=== PATIENT | female | born 1965 | race Caucasian/White ===

== ENCOUNTER 2017-06-03 21:53 | Emergency (ER) | payer OTHER ==
[2017-06-03 22:04] VITALS: BMI 21.6
--- NOTE | 2017-06-03 22:42 | PDOC ---
History of Present Illness - General Chief Complaint: Wound Infection Stated Complaint: PAIN, ACUTE Time Seen by Provider: 06/03/17 22:39 - History of Present Illness Initial Comments: 06/03/17 23:16 52F with pmh of HTN presents with fever and back pain from infection of a wound from 3 weeks ago supposedly from an insect bite. 3 days after noticing the bite which had turned into an abcess, the patient went to her pcp Dr. Story who drained it and cultured the pus. After a short course of empiric Clavulin the patient went for a second visit and was given Bactrim to cover for MRSA, identified in the culture, and mupirocin oitment. The patient claims that although the wound is looking better and closing, she still feels sick and complains of back pain. She present today with 99.2 fever (not taking NSAIDS), 100 pulse, 134/74. 06/03/17 23:31 Past History - Past Medical History Allergies/Adverse Reactions: Allergies Allergy/AdvReac Type Severity Reaction Status Date / Time No Known Drug Allergies Allergy Verified 06/03/17 22:04 SEAFOOD Allergy Intermediate VOMITTING Uncoded 06/03/17 22:04 Home Medications: Ambulatory Orders Mupirocin Ointment [Bactroban Ointment (For Decolonization) -] 1 applic TP BID 06/03/17 Sulfamethoxazole/Trimethoprim [Bactrim Ds -] 1 tab PO BID 06/03/17 Clindamycin [Cleocin -] 300 mg PO TID #30 capsule 06/04/17 Anemia: No Asthma: No Cancer: No Cardiac Disorders: No CVA: No COPD: No CHF: No Dementia: No Diabetes: No GI Disorders: Yes (Ulcers, HEALED) Disorders: No HTN: Yes Hypercholesterolemia: No Liver Disease: Yes (Hepatitis) Seizures: No Thyroid Disease: No Other medical history: MRSA to wound by PMD - Surgical History Abdominal Surgery: Yes (TUMMY TUCK) Appendectomy: No Cardiac Surgery: No Cholecystectomy: No Lung Surgery: No Neurologic Surgery: No Orthopedic Surgery: No - Psycho/Social/Smoking Cessation Hx Anxiety: No Suicidal Ideation: No Smoking Status: No Smoking History: Never smoked Number of Cigarettes Smoked Daily: 0 Hx Alcohol Use: Yes (RARELY) Drug/Substance Use Hx: No Substance Use Type: None Hx Substance Use Treatment: No Review of Systems - Review of Systems Constitutional: Yes: Fever. No: Chills, Diaphoresis HEENTM: No: Symptoms Reported Respiratory: No: Symptoms reported Cardiac (ROS): No: Symptoms Reported ABD/GI: No: Symptoms Reported : No: Symptoms Reported Musculoskeletal: Yes: See HPI Integumentary: Yes: See HPI Neurological: No: Symptoms reported *Physical Exam - Vital Signs Last Vital Signs Temp Pulse Resp BP Pulse Ox 99.2 F 100 H 18 134/84 98 06/03/17 22:03 06/03/17 22:03 06/03/17 22:03 06/03/17 22:03 06/03/17 22:03 - Physical Exam General Appearance: Yes: Nourished, Appropriately Dressed. No: Apparent Distress HEENT: positive: EOMI, LINDA Neck: negative: Tender Respiratory/Chest: positive: Lungs Clear, Normal Breath Sounds. negative: Chest Tender Cardiovascular: positive: Regular Rhythm, Tachycardia Gastrointestinal/Abdominal: positive: Normal Bowel Sounds. negative: Rebound, Tenderness Integumentary: positive: Other (open wound over Left lower back, no purulence, fluctuation or necrotic tissue, no induration or erythema around the wound) ED Treatment Course - LABORATORY CBC & Chemistry Diagram: 06/03/17 23:30 06/03/17 23:30 Medical Decision Making - Medical Decision Making 06/03/17 23:35 52F presenting for wound check, fever and back pain following abcess I&D by PCP and 10 day course of Bactrim. cbc cmp and cultures drawn 06/04/17 00:29 WBC wnl. PAtient d/c on clindamycin. *DC/Admit/Observation/Transfer Diagnosis at time of Disposition: Admission for wound check of abscess - Discharge Dispostion Disposition: HOME Admit: No - Prescriptions Prescriptions: Clindamycin [Cleocin -] 300 mg PO TID #30 capsule - Referrals Referrals: Nimco Story [Primary Care Provider] -
--- NOTE | 2017-06-03 23:22 | PDOC ---
Attending Attestation - HPI HPI: 06/03/17 23:36 The patient is a 52 year old female with a significant past medical history of hepatitis and aneurysm, presenting to the ED with wound infection on the left hip. Patient states that she came back from [place] 3 weeks ago and noticed an insect fight that progressed into an abscess. Patient was seen at her PCPs office where the abscess was drained and patient was discharged on Bactrim after the wound culture tested positive for MRSA. Patient states that the wound looks better, but she still feels sick and has a fever even after completing a full course of Bactrim. - Physicial Exam PE: 06/03/17 23:37 GENERAL: Well-appearing, well-nourished. No apparent distress. HEENT: Normocephalic, atraumatic. PERRL, EOM intact. CARDIOVASCULAR: Normal S1, S2. Regular rate and rhythm. PULMONARY: Clear to auscultation bilaterally. ABDOMEN: Soft, non-distended, non-tender. EXTREMITIES: Normal ROM in all four extremities. No gross deformities. SKIN: (+)Open wound left hip, Wound is clear, No excoriation of the surrounding tissue , No erythema, No induration, Mild to no tenderness. Warm, dry. No rash NEUROLOGICAL: No focal neurological deficits. - Medical Decision Making 06/03/17 23:37 52 year old female with pmhx of hepatitis who presents today with wound to the left hip. Patient states that she had abscess I&D by PMD and the wound culture tested positive for MRSA and she was given course of Bactrim. She states that after completion of abx she is still experiencing malaise and fever. She notes that the wound does look better to her. Plan: CBC Toradol UA Clindamycin 600 Mg Blood culture Reassess Documentation prepared by GLORIA Rodriguez, acting as hospital medical biller for Alvino Jolly DO. <Salima Marvin - Last Filed: 06/03/17 23:36> - Resident Resident Name: Arnav Natarajan - ED Attending Attestation I have performed the following: I have examined & evaluated the patient, The case was reviewed & discussed with the resident, I agree w/resident's findings & plan, Exceptions are as noted <Alvino Jolly - Last Filed: 06/04/17 00:29> Discharge Disposition - Discharge Dispostion Last Admission D/C Date: 08/13/13 Admit: No <MargaritaAlvino - Last Filed: 06/04/17 00:29> - Diagnosis Local infection of wound - Discharge Dispostion Disposition: HOME Condition at time of disposition: Stable - Patient Instructions Printed Discharge Instructions: DI for Wound Infection Additional Instructions: Keep wound clean and dry. Wash with soap and water. Keep covered. Take medication as directed. Follow up with your doctor as soon as possible.
[2017-06-03] MEDS ORDERED: CLINDAMYCIN 600MG PREMIX IVPB 50 ML IVPB ONE (23:27)
[2017-06-03] MEDS ORDERED: KETOROLAC TROMETHAMINE 30 MG/1 ML VIAL IVPUSH ONE (23:28)
[2017-06-03] MEDS ORDERED: KETOROLAC TROMETHAMINE 30 MG/1 ML VIAL ONE (23:41)
[2017-06-03 23:58] LABS: BASOPHIL 0.7 % (0-2.0); EOSINOPHIL 1.9 % (0-4.5); MCH 27.2 pg (25.7-33.7); MCHC 32.9 g/dl (32.0-36.0); MEAN CELL VOLUME 82.7 fl (80-96); MEAN PLT VOLUME 9.5 fl (7.5-11.1); NEUTROPHILS 67.8 % (42.8-82.8); PLATELET COUNT 326 K/MM3 (134-434); RDW 15.4 % (11.6-15.6); WHITE BLOOD COUNT 6.1 K/mm3 (4.0-10.0)
[2017-06-04 00:18] LABS: URINE APPEARANCE CLEAR; URINE BILIRUBIN NEGATIVE (NEGATIVE); URINE BLOOD NEGATIVE (NEGATIVE); URINE COLOR COLORLESS; URINE GLUCOSE (UA) NEGATIVE (NEGATIVE); URINE KETONE NEGATIVE (NEGATIVE); URINE LEUK ESTERASE NEGATIVE (NEGATIVE); URINE NITRITE NEGATIVE (NEGATIVE); URINE PROTEIN NEGATIVE (NEGATIVE); URINE UROBILINOGEN NEGATIVE mg/dL (0.2-1.0)
[2017-06-04 00:19] LABS: ALBUMIN 4.1 g/dl (3.4-5.0); ALK PHOS 94 U/L (45-117); ANION GAP 8 (8-16); BILIRUBIN,TOTAL 0.3 mg/dL (0.2-1.0); CALCIUM 9.4 mg/dL (8.5-10.1); CO2 26 mmol/L (21-32); CREATININE 0.8 mg/dL (0.55-1.02); GLUCOSE,RANDOM 93 mg/dL (74-106); SGOT/AST 19 U/L (15-37); SGPT/ALT 28 U/L (12-78); TOT PROT 8.1 g/dl (6.4-8.2)
[2017-06-04 00:32] VITALS: BP 130/80; PULSE 94; TEMP 98.7
== END 2017-06-04 00:37 | disposition home or self-care (01) ==
LOC: JER 21:53
PROC: 3E03329 Introduction of Other Anti-infective into Peripheral Vein, Percutaneous Approach (ICD-10-PCS; principal; 2017-06-03)
PROC: 3E0333Z Introduction of Anti-inflammatory into Peripheral Vein, Percutaneous Approach (ICD-10-PCS; 2017-06-03)
DX: Z48.01 Encounter for change or removal of surgical wound dressing (principal); I10 Essential (primary) hypertension; Z86.14 Personal history of Methicillin resistant Staphylococcus aureus infection
CPT/HCPCS: 36415; 80053; 81003; 85025; 87040; 99283-25

== ENCOUNTER 2017-09-07 10:23 | Inpatient (IN) | payer OTHER ==
[2017-09-07 14:19] LABS: BASOPHIL 0.3 % (0-2.0); EOSINOPHIL 3.8 % (0-4.5); MCH 26.3 pg (25.7-33.7); MCHC 31.6 g/dl (32.0-36.0); MEAN CELL VOLUME 83.3 fl (80-96); NEUTROPHILS 84.7 % (42.8-82.8); PLATELET COUNT 414 K/MM3 (134-434); RDW 15.9 % (11.6-15.6); WHITE BLOOD COUNT 17.3 K/mm3 (4.0-10.0)
--- NOTE | 2017-09-07 14:29 | PDOC ---
History of Present Illness - General Chief Complaint: Wound Stated Complaint: PAIN Time Seen by Provider: 09/07/17 12:21 History Source: Patient Exam Limitations: No Limitations - History of Present Illness Initial Comments: 09/07/17 14:29 Pt. is a 52 y/o F PMH of HTN, hepatitis?, abscesses (MRSA+ in the past) who presents to the ED c/o L thigh pain. Pt. states that she has an "infection" on her L leg and a "small infection" on the back of her R thigh. States that she went to an urgent care on Thursday for the same symptoms. She was discharged home on doxycycline and bactrim. Pt. states that the infections are very red and painful. She states that the area of redness has gotten bigger over the past two days despite being on antibiotics. No history of diabetes. Admits to chills, subjective fevers, leg pain. Denies weakness, dizziness, malaise, shortness of breath, chest pain, numbness and tingling of the legs, N/V/D. Past History - Past Medical History Allergies/Adverse Reactions: Allergies Allergy/AdvReac Type Severity Reaction Status Date / Time No Known Drug Allergies Allergy Verified 09/07/17 10:49 SEAFOOD Allergy Intermediate VOMITTING Uncoded 09/07/17 10:49 Home Medications: Ambulatory Orders Sulfamethoxazole/Trimethoprim [Bactrim Ds -] 1 tab PO BID 06/03/17 Amlodipine Besylate [Norvasc -] 2.5 mg PO DAILY 09/07/17 Doxycycline Hyclate 100 mg PO BID 09/07/17 Anemia: No Asthma: No Cancer: No Cardiac Disorders: No CVA: No COPD: No CHF: No Dementia: No Diabetes: No GI Disorders: Yes (Ulcers, HEALED) Disorders: No HTN: Yes Hypercholesterolemia: No Liver Disease: Yes (Hepatitis) Seizures: No Thyroid Disease: No - Surgical History Abdominal Surgery: Yes (LUCINA REYES) Appendectomy: No Cardiac Surgery: No Cholecystectomy: Yes Lung Surgery: No Neurologic Surgery: No Orthopedic Surgery: No - Immunization History Immunization Up to Date: Yes - Suicide/Smoking/Psychosocial Hx Smoking Status: No Smoking History: Never smoked Have you smoked in the past 12 months: No Number of Cigarettes Smoked Daily: 0 Information on smoking cessation initiated: No Hx Alcohol Use: No Drug/Substance Use Hx: No Substance Use Type: None Hx Substance Use Treatment: No Review of Systems - Review of Systems Able to Perform ROS?: Yes Comments:: 09/07/17 15:17 CONSTITUTIONAL: Present: subjective fevers, chills. Absent: diaphoresis, generalized weakness, malaise, loss of appetite HEENT: Absent: rhinorrhea, nasal congestion, throat pain, throat swelling, difficulty swallowing, mouth swelling, ear pain, eye pain, visual Changes CARDIOVASCULAR: Absent: chest pain, loss of consciousness, palpitations, irregular heart rate, peripheral edema RESPIRATORY: Absent: cough, shortness of breath, dyspnea with exertion, orthopnea, wheezing, stridor, hemoptysis GASTROINTESTINAL: Absent: abdominal pain, abdominal distension, nausea, vomiting, diarrhea, constipation, melena, hematochezia GENITOURINARY: Absent: dysuria, frequency, urgency, hesitancy, hematuria, flank pain, genital pain MUSCULOSKELETAL: Absent: myalgia, arthralgia, joint swelling SKIN: Present:Cellulitis posterior R thigh, abscess with cellulitis L inner thigh Absent: rash, itching, pallor HEMATOLOGIC/IMMUNOLOGIC: Absent: easy bleeding, easy bruising, lymphadenopathy, frequent infections ENDOCRINE: Absent: unexplained weight gain, unexplained weight loss, heat intolerance, cold intolerance NEUROLOGIC: Absent: headache, focal weakness or paresthesias, dizziness, unsteady gait, seizure, mental status changes, bladder or bowel incontinence PSYCHIATRIC: Absent: anxiety, depression, suicidal or homicidal ideation, hallucinations. Is the patient limited Yakut proficient: No *Physical Exam - Vital Signs Last Vital Signs Temp Pulse Resp BP Pulse Ox 98.3 F 81 18 124/49 100 09/07/17 10:44 09/07/17 10:44 09/07/17 10:44 09/07/17 10:44 09/07/17 10:44 - Physical Exam Comments: 09/07/17 22:22 Constitutional: Well developed, well nourished. Awake and alert. No acute distress. HEENT: Normocephalic, atraumatic. PERRLA, EOMI. No conjunctival pallor. Sclera are non- icteric. Moist mucous membranes. Oropharynx is clear. NECK: Supple. Full ROM. No JVD. Carotid pulses 2+ and symmetric, without bruits. No thyromegaly. No lymphadenopathy. CARDIOVASCULAR: Regular rate and rhythm. No murmurs, rubs, or gallops. Distal pulses are 2+ and symmetric. PULMONARY: No evidence of respiratory distress. Lungs clear to auscultation bilaterally. No wheezing, rales or rhonchi. ABDOMINAL: Soft. Non-tender. Non-distended. No rebound or guarding. No organomegaly. Normoactive bowel sounds. MUSCULOSKELETAL Normal range of motion at all joints. No bony deformities or tenderness. No CVA tenderness. EXTREMITIES: No cyanosis. No clubbing. No edema. No calf tenderness. SKIN: L medial thigh with large 4x4cm indurated abscess with surrounding cellulitis ( approx 10cm round). R posterior thigh [id number] round cellulitic area. Warm and dry. Normal capillary refill. No jaundice. NEUROLOGICAL: Alert, awake, appropriate. Cranial nerves 2-12 intact. No deficits to light touch and temperature in face, upper extremities and lower extremities. No motor deficits in the in face, upper extremities and lower extremities. Normoreflexic in the upper and lower extremities. Normal speech. Toes are down- going bilaterally. Gait is normal without ataxia. PSYCHIATRIC: Cooperative. Good eye contact. Appropriate mood and affect. ED Treatment Course - LABORATORY CBC & Chemistry Diagram: 09/07/17 13:43 09/07/17 13:43 Medical Decision Making - Medical Decision Making 09/07/17 14:25 Pt. is a 52 y/o f with PMH of HTN, hepatitis, old abscess (MRSA+ in past) who presents to the ED with a large abscess with cellulitis of the L thigh and cellulitis of the posterior R thigh. Pt. failed outpatient therapy as the cellulitis has gotten worse. Will order basic labs, blood cx, and IV abx. Will use bedside US to determine if the abscess is able to be drained. 1. CBC, CMP, PT/INR, Blood Cx, UA, UC 2. Bedside US 3. Ofirmev, IV Vancomycin, IV Zosyn 4. Re-evaluate 09/07/17 15:16 Bed side US of the L thigh shows cobblestoning of the soft tissue suggestive of cellulitis. Less than 1cm fluid pocket inferior to the cobble stoning. Area feels indurated. Will not drain at this time. WBC count elevated to 17. Other lab work is unremarkable. Will admit for IV abx. PCP: Dr. Story at [address] [place] [address] Trotter for admission 09/07/17 15:23 Call back received from Dr. Trotter. Case was discussed. Pt. to be admitted to Med/Surg for further treatment. ID consulted at this time, Dr. Kilgore. *DC/Admit/Observation/Transfer Diagnosis at time of Disposition: Cellulitis and abscess of left leg - Discharge Dispostion Condition at time of disposition: Stable Admit: Yes
[2017-09-07] MEDS ORDERED: VANCOMYCIN 1,000 MG in DEXTROSE 5%-WATER - 250 ML IVPB ONE (14:44)
[2017-09-07] MEDS ORDERED: PIPERACILLIN/TAZOB 3.375 GM 50 ML IVPB ONE ×2 (14:44→14:47)
[2017-09-07 14:45] LABS: ALBUMIN 3.4 g/dl (3.4-5.0); ANION GAP 11 (8-16); BILIRUBIN,TOTAL 0.4 mg/dL (0.2-1.0); CO2 22 mmol/L (21-32); CREATININE 0.8 mg/dL (0.55-1.02); GLUCOSE,RANDOM 129 mg/dL (74-106); SGOT/AST 15 U/L (15-37); SGPT/ALT 32 U/L (12-78); TOT PROT 7.7 g/dl (6.4-8.2)
[2017-09-07] MEDS ORDERED: ACETAMINOPHEN 1000 MG/100 ML VIAL (NON FORMULARY) IVPB ONE (14:45)
[2017-09-07 14:46] LABS: ALK PHOS 92 U/L (45-117)
[2017-09-07] MEDS ORDERED: ACETAMINOPHEN INJECTION 100 ML IVPB ONE (14:46)
[2017-09-07 14:48] LABS: INR 1.19 (0.82-1.09); PROTHROMBIN TIME (PATIENT) 13.5 SEC (9.98-11.88)
[2017-09-07] MEDS ORDERED: VANCOMYCIN 1 GRAM (PRE-DOCKED) 250 ML IVPB ONE (15:10)
[2017-09-07 17:13] VITALS: BMI 26.3
--- NOTE | 2017-09-07 17:33 | HP ---
Admitting History and Physical - Primary Care Physician PCP: Giovanny Trotter - Admission History of Present Illness: cellulitis llex - Past Medical History ...LMP: 01/31/11 ...: No - Smoking History Smoking history: Never smoked Have you smoked in the past 12 months: No Aproximately how many cigarettes per day: 0 - Alcohol/Substance Use Hx Alcohol Use: No Home Medications - Allergies Allergies/Adverse Reactions: Allergies Allergy/AdvReac Type Severity Reaction Status Date / Time No Known Drug Allergies Allergy Verified 09/07/17 10:49 SEAFOOD Allergy Intermediate VOMITTING Uncoded 09/07/17 10:49 - Home Medications Home Medications: Ambulatory Orders Sulfamethoxazole/Trimethoprim [Bactrim Ds -] 1 tab PO BID 06/03/17 Amlodipine Besylate [Norvasc -] 2.5 mg PO DAILY 09/07/17 Doxycycline Hyclate 100 mg PO BID 09/07/17 Physical Examination Vital Signs: Vital Signs Temperature 98.4 F 09/07/17 17:12 Pulse Rate 76 09/07/17 17:12 Respiratory Rate 18 09/07/17 17:12 Blood Pressure 120/80 09/07/17 17:12 O2 Sat by Pulse Oximetry (%) 100 09/07/17 10:44 Constitutional: Yes: No Distress HENT: Yes: Atraumatic Neck: Yes: Supple Cardiovascular: Yes: Regular Rate and Rhythm Respiratory: Yes: CTA Bilaterally Gastrointestinal: Yes: Normal Bowel Sounds Extremities: Yes: Other (llex warm , red) Neurological: Yes: Alert Problem List - Problems (1) Cellulitis and abscess of left leg Assessment/Plan: iv abx bcx id consult prn pain meds Code(s): L03.116 - CELLULITIS OF LEFT LOWER LIMB L02.416 - CUTANEOUS ABSCESS OF LEFT LOWER LIMB Assessment/Plan Laboratory Tests 09/07/17 09/07/17 09/07/17 13:43 13:43 13:43 WBC 17.3 H D RBC 4.31 Hgb 11.3 Hct 35.9 MCV 83.3 MCH 26.3 MCHC 31.6 L RDW 15.9 H Plt Count 414 D MPV 9.0 Neutrophils % 84.7 H D Lymphocytes % 6.4 L D Monocytes % 4.8 Eosinophils % 3.8 D Basophils % 0.3 PT with INR 13.50 H INR 1.19 H Sodium 137 Potassium 4.1 Chloride 104 Carbon Dioxide 22 Anion Gap 11 BUN 10 Creatinine 0.8 Creat Clearance w eGFR > 60 Random Glucose 129 H D Calcium 9.0 Total Bilirubin 0.4 D AST 15 D ALT 32 Alkaline Phosphatase 92 Total Protein 7.7 Albumin 3.4 Active Medications Generic Name Dose Route Start Last Admin Trade Name Freq PRN Reason Stop Dose Admin Piperacillin Sod/Tazobactam 50 mls @ 100 mls/hr 09/08/17 02:00 Sod 3.375 gm/ Dextrose IVPB Q8H-IV K[facility]AME Protocol
[2017-09-07] MEDS ORDERED: ACETAMINOPHEN 325 MG TABLET (FP) PO PRN (17:34)
[2017-09-07] MEDS ORDERED: oxyCODONE HCL 5 MG TABLET PO ONE (17:45)
[2017-09-07 21:14] LABS: URINE APPEARANCE CLEAR; URINE BILIRUBIN NEGATIVE (NEGATIVE); URINE COLOR LT. YELLOW; URINE GLUCOSE (UA) NEGATIVE (NEGATIVE); URINE KETONE NEGATIVE (NEGATIVE); URINE NITRITE NEGATIVE (NEGATIVE); URINE PROTEIN NEGATIVE (NEGATIVE); URINE UROBILINOGEN 0.2 mg/dL (0.2-1.0)
[2017-09-07 21:25] LABS: URINE BLOOD 1+ (NEGATIVE)
[2017-09-07 21:47] LABS: URINE BACTERIA RARE /hpf (NONE SEEN); URINE RBC <1 /hpf (0-3); URINE WBC 0-2 /hpf (3-5)
[2017-09-07] MEDS: HEPARIN NA (PORCINE) 5,000 UNITS/ML 1ML VIAL SQ SCH (21:55)
[2017-09-07 22:51] LABS: URINE LEUK ESTERASE Negative (NEGATIVE)
[2017-09-08] MEDS: PIPERACILLIN/TAZOB 3.375 GM 3.375 GM in DEXTROSE 5%-WATER - 50 ML IVPB SCH ×3 (01:16→17:27)
[2017-09-08 08:07] LABS: BASOPHIL 0.4 % (0-2.0); EOSINOPHIL 6.8 % (0-4.5); MCHC 32.8 g/dl (32.0-36.0); MEAN CELL VOLUME 82.5 fl (80-96); MEAN PLT VOLUME 8.6 fl (7.5-11.1); NEUTROPHILS 74.8 % (42.8-82.8); PLATELET COUNT 423 K/MM3 (134-434); RDW 15.9 % (11.6-15.6)
[2017-09-08 11:30] LABS: ALBUMIN 3.4 g/dl (3.4-5.0); ANION GAP 10 (8-16); BILIRUBIN,TOTAL 0.3 mg/dL (0.2-1.0); CALCIUM 8.8 mg/dL (8.5-10.1); CO2 25 mmol/L (21-32); CREATININE 0.7 mg/dL (0.55-1.02); GLUCOSE,RANDOM 92 mg/dL (74-106); SGOT/AST 10 U/L (15-37); SGPT/ALT 29 U/L (12-78); TOT PROT 7.8 g/dl (6.4-8.2)
[2017-09-08 11:31] LABS: ALK PHOS 89 U/L (45-117)
[2017-09-08] MEDS: DOCUSATE SODIUM 100 MG CAPSULE (FP) PO SCH (11:46)
[2017-09-08] MEDS: amLODIPine BESYLATE 2.5 MG TABLET (FP) PO SCH (11:46)
[2017-09-08] MEDS: HEPARIN NA (PORCINE) 5,000 UNITS/ML 1ML VIAL SQ SCH ×2 (11:46→22:47)
--- NOTE | 2017-09-08 14:47 | CON.ID ---
Consult Consult Specialty:: infectious diseases Reason for Consultation:: abscess and rash over the body - History of Present Illness Chief Complaint: rash History of Present Illness: 52yo F with HTN, hepatitis and h/o MRSA in L flank abscess drained earlier this summer, came with left inner thigh swelling, redness and pain as well as a smaller but similar spot on her posterior right thigh. . patient started on Vanco and Zosyn . . She states the lesions started shortly after beginning to wear thigh-high compression stockings. She does shave her legs and near these areas, but is not sure she shaved in these exact spots. There has been no drainage from the sites. patient has no pets and no other medical problems - History Source History Provided By: Patient Limitations to Obtaining History: Language Barrier - Past Medical History ...LMP: 01/31/11 ...: No - Alcohol/Substance Use Hx Alcohol Use: No - Smoking History Smoking history: Never smoked Have you smoked in the past 12 months: No Aproximately how many cigarettes per day: 0 Home Medications - Allergies Allergies/Adverse Reactions: Allergies Allergy/AdvReac Type Severity Reaction Status Date / Time No Known Drug Allergies Allergy Verified 09/07/17 10:49 SEAFOOD Allergy Intermediate VOMITTING Uncoded 09/07/17 10:49 - Home Medications Home Medications: Ambulatory Orders Sulfamethoxazole/Trimethoprim [Bactrim Ds -] 1 tab PO BID 06/03/17 Amlodipine Besylate [Norvasc -] 2.5 mg PO DAILY 09/07/17 Doxycycline Hyclate 100 mg PO BID 09/07/17 Review of Systems - Review of Systems Constitutional: reports: No Symptoms Eyes: reports: No Symptoms HENT: reports: No Symptoms Neck: reports: No Symptoms Cardiovascular: reports: No Symptoms Respiratory: reports: No Symptoms Gastrointestinal: reports: No Symptoms Genitourinary: reports: No Symptoms Musculoskeletal: reports: Other Integumentary: reports: Change in Color, Erythema, Lump, Rash Neurological: reports: No Symptoms Endocrine: reports: No Symptoms Hematology/Lymphatic: reports: No Symptoms Psychiatric: reports: No Symptoms Physical Exam Vital Signs: Vital Signs Temperature 97.9 F 09/08/17 14:19 Pulse Rate 81 09/08/17 14:19 Respiratory Rate 18 09/08/17 14:19 Blood Pressure 117/77 09/08/17 14:19 O2 Sat by Pulse Oximetry (%) 100 09/08/17 09:00 Constitutional: Yes: Well Nourished, Calm Eyes: Yes: Conjunctiva Clear HENT: Yes: Atraumatic, Normocephalic Neck: Yes: Supple, Trachea Midline Cardiovascular: Yes: Regular Rate and Rhythm Respiratory: Yes: Regular, CTA Bilaterally Gastrointestinal: Yes: Normal Bowel Sounds, Soft Musculoskeletal: Yes: Other Extremities: Yes: Erythema (medial side) Integumentary: Yes: Rash Neurological: Yes: Alert, Oriented Psychiatric: Yes: Alert, Oriented Labs: CBC, BMP 09/08/17 07:28 09/08/17 07:30 Assessment/Plan Problem List - Problems (1) Cellulitis and abscess of left leg Code(s): L03.116 - CELLULITIS OF LEFT LOWER LIMB; L02.416 - CUTANEOUS ABSCESS OF LEFT LOWER LIMB (2) Benign essential hypertension Code(s): I10 - ESSENTIAL (PRIMARY) HYPERTENSION plan will continue iv abx strong suspicion of mrsa surgery to see the patient rest as per primary
[2017-09-08] MEDS: VANCOMYCIN 1,250 MG in DEXTROSE 5%-WATER - 250 ML IVPB SCH (15:59)
[2017-09-08] MEDS ORDERED: PT OWN MED DRAWER 7, Y5N ONE (16:55)
--- NOTE | 2017-09-08 19:32 | PN ---
Progress Note, Physician - Current Medication List Current Medications: Active Medications Acetaminophen (Tylenol -) 650 mg PO Q6H PRN PRN Reason: FEVER OR PAIN Amlodipine Besylate (Norvasc -) 2.5 mg PO DAILY [facility] Last Admin: 09/08/17 11:46 Dose: 2.5 mg Docusate Sodium (Colace -) 100 mg PO DAILY [facility] Last Admin: 09/08/17 11:46 Dose: 100 mg Heparin Sodium (Porcine) (Heparin -) 5,000 unit SQ BID [facility] Last Admin: 09/08/17 11:46 Dose: 5,000 unit Piperacillin Sod/Tazobactam (Sod 3.375 gm/ Dextrose) 50 mls @ 100 mls/hr IVPB Q8H-IV [facility] PRN Reason: Protocol Last Admin: 09/08/17 17:27 Dose: 100 mls/hr Vancomycin HCl 1,250 mg/ (Dextrose) 250 mls @ 250 mls/hr IVPB DAILY [facility] PRN Reason: Protocol Last Admin: 09/08/17 15:59 Dose: 250 mls/hr Oxycodone HCl (Roxicodone -) 5 mg PO Q4H PRN PRN Reason: PAIN - Objective Vital Signs: Vital Signs Temperature 98.6 F 09/08/17 18:00 Pulse Rate 70 09/08/17 18:00 Respiratory Rate 18 09/08/17 18:00 Blood Pressure 130/77 09/08/17 18:00 O2 Sat by Pulse Oximetry (%) 100 09/08/17 09:00 Constitutional: Yes: No Distress HENT: Yes: Atraumatic Neck: Yes: Supple Cardiovascular: Yes: Regular Rate and Rhythm Respiratory: Yes: CTA Bilaterally Gastrointestinal: Yes: Normal Bowel Sounds Extremities: Yes: Other (left thigh cellelitis/abcess) Peripheral Pulses WNL: Yes Neurological: Yes: Alert, Oriented Labs: CBC, BMP 09/08/17 07:28 09/08/17 07:30 INR, PTT INR 1.19 (0.82-1.09) H 09/07/17 13:43 Problem List - Problems (1) Cellulitis and abscess of left leg Assessment/Plan: iv abx bcx id consult prn pain meds will get surgery for I and d Code(s): L03.116 - CELLULITIS OF LEFT LOWER LIMB L02.416 - CUTANEOUS ABSCESS OF LEFT LOWER LIMB
[2017-09-09] MEDS: PIPERACILLIN/TAZOB 3.375 GM 3.375 GM in DEXTROSE 5%-WATER - 50 ML IVPB SCH ×3 (01:24→17:25)
[2017-09-09] MEDS: HEPARIN NA (PORCINE) 5,000 UNITS/ML 1ML VIAL SQ SCH ×3 (10:14→22:37)
[2017-09-09] MEDS ORDERED: PT OWN MED DRAWER 7, Y5N ONE ×2 (10:26→17:22)
[2017-09-09] MEDS: DEXTROSE 5%-0.45% SALINE 1,000 ML IV SCH ×3 (10:32→22:33)
[2017-09-09] MEDS: DOCUSATE SODIUM 100 MG CAPSULE (FP) PO SCH (10:32)
[2017-09-09] MEDS: amLODIPine BESYLATE 2.5 MG TABLET (FP) PO SCH (10:32)
--- NOTE | 2017-09-09 11:14 | CONSULT ---
Consult Consult Specialty:: General Surgery Referred by:: Dr. Trotter Reason for Consultation:: left thigh abscess/cellulitis - History of Present Illness Chief Complaint: left inner thigh swelling, redness, pain, also smaller spot back of right thigh History of Present Illness: 52yo F with HTN, hepatitis and h/o MRSA in L flank abscess drained earlier this summer, was admitted to medicine through ED 2 nights ago with c/o L inner thigh swelling, redness and pain as well as a smaller but similar spot on her posterior right thigh. US done by the ED showed mostly cellulitis in tissues underlying the left thigh lesion with 1cm or less fluid collection underneath. She was admitted and started on Vanco and Zosyn with ID on board. She states her pain and the redness have been improving. She had no n/v, d/c, has had no fevers. WBC was initially 17 but is down to 11 today. She states the lesions started shortly after beginning to wear thigh-high compression stockings. She does shave her legs and near these areas, but is not sure she shaved in these exact spots. There has been no drainage from the sites. Surgery is consulted to evaluate for possible incision and drainage. - History Source History Provided By: Patient Limitations to Obtaining History: No Limitations - Past Medical History Cardio/Vascular: Yes: HTN Hepatobiliary: Yes: Other (hepatitis) ...LMP: 01/31/11 ...: No Infectious Disease: Yes: MRSA (in May) - Past Surgical History Past Surgical History: Yes: Cholecystectomy (laparoscopic), Additional Surgical History: abdominoplasty, breast implants; left flank/back abscess drainage in May (MRSA) - Alcohol/Substance Use Hx Alcohol Use: Yes (occasional wine) History of Substance Use: reports: None - Smoking History Smoking history: Never smoked Have you smoked in the past 12 months: No Aproximately how many cigarettes per day: 0 - Social History ADL: Independent Home Medications - Allergies Allergies/Adverse Reactions: Allergies Allergy/AdvReac Type Severity Reaction Status Date / Time No Known Drug Allergies Allergy Verified 09/07/17 10:49 SEAFOOD Allergy Intermediate VOMITTING Uncoded 09/07/17 10:49 - Home Medications Home Medications: Ambulatory Orders Sulfamethoxazole/Trimethoprim [Bactrim Ds -] 1 tab PO BID 06/03/17 Amlodipine Besylate [Norvasc -] 2.5 mg PO DAILY 09/07/17 Doxycycline Hyclate 100 mg PO BID 09/07/17 Family Disease History - Family Disease History Family History: Unremarkable Review of Systems - Review of Systems Constitutional: denies: Chills, Fever Eyes: denies: Blurred Vision, Recent Change in Vision HENT: denies: Difficult Swallowing, Throat Pain Neck: denies: Swollen Glands, Tenderness Cardiovascular: denies: Chest Pain, Palpitations Respiratory: denies: Cough, SOB Gastrointestinal: denies: Abdominal Pain, Constipation, Diarrhea, Nausea, Vomiting Genitourinary: denies: Burning, Dysuria Musculoskeletal: denies: Back Pain, Joint Pain Integumentary: reports: Erythema (with hpi), Lesions (with hpi), Lump (with hpi) Neurological: denies: Dizziness, Headache Psychiatric: denies: Anxiety, Depression Physical Exam Vital Signs: Vital Signs Temperature 98.2 F 09/09/17 10:00 Pulse Rate 73 09/09/17 10:00 Respiratory Rate 18 09/09/17 10:00 Blood Pressure 130/85 09/09/17 10:00 O2 Sat by Pulse Oximetry (%) 97 09/09/17 10:00 Constitutional: Yes: Well Nourished, No Distress, Calm Eyes: Yes: Conjunctiva Clear, EOM Intact HENT: Yes: Atraumatic, Normocephalic Neck: Yes: Supple, Trachea Midline Cardiovascular: Yes: Regular Rate and Rhythm. No: Murmur Respiratory: Yes: Regular, CTA Bilaterally Gastrointestinal: Yes: Soft. No: Distention, Tenderness ...Rectal Exam: Yes: Deferred Renal/: No: CVA Tenderness - Left, CVA Tenderness - Right Breast(s): Yes: Breast Implants Extremities: Yes: Erythema (small perilesional cellulitis on posterior right thigh; left inner thigh with erythema around pointing, mobile indurated and superficially fluctuant spot, tender, less erythema than yesterday per pt). No : Cool, Cyanosis Edema: No Peripheral Pulses WNL: Yes Integumentary: Yes: Other (healed left flank scar; additional scab/lesion in healing stages on right inner thigh) Neurological: Yes: Alert, Oriented Psychiatric: Yes: Alert, Oriented Labs: CBC, BMP 09/08/17 07:28 11/07/17 07:30 Microbiology 09/07/17 19:16 Urine Culture - Final Urine - Urine Clean Catch NO GROWTH OBTAINED 09/07/17 13:43 Blood Culture - Preliminary Blood - Peripheral Venous NO GROWTH OBTAINED AFTER 24 HOURS, INCUBATION TO CONTINUE FOR 4 DAYS. 09/07/17 13:43 Blood Culture - Preliminary Blood - Peripheral Venous NO GROWTH OBTAINED AFTER 24 HOURS, INCUBATION TO CONTINUE FOR 4 DAYS. Imaging - Results Ultrasound: Other (bedside US in ER noted for <1cm pocket of fluid under cellulitic tissues) Problem List - Problems (1) Cellulitis and abscess of left leg Assessment/Plan: on IV abx per ID cellulitis improving per pt probably MRSA can perform bedside I&D of left inner thigh abscess, but minimal cavity/pus anticipated will culture will need daily wound care with packing changes afterward would need VNS set up for d/c will discuss further with patient and plan for later today Thank you for the opportunity to participate in the care of this patient. Code(s): L03.116 - CELLULITIS OF LEFT LOWER LIMB; L02.416 - CUTANEOUS ABSCESS OF LEFT LOWER LIMB (2) Benign essential hypertension Code(s): I10 - ESSENTIAL (PRIMARY) HYPERTENSION
[2017-09-09] MEDS: VANCOMYCIN 1,250 MG in DEXTROSE 5%-WATER - 250 ML IVPB SCH (11:42)
--- NOTE | 2017-09-09 12:27 | PN ---
Progress Note, Physician History of Present Illness: feeling better no new issues surgery planning to drain the abscess - Current Medication List Current Medications: Active Medications Acetaminophen (Tylenol -) 650 mg PO Q6H PRN PRN Reason: FEVER OR PAIN Amlodipine Besylate (Norvasc -) 2.5 mg PO DAILY [facility] Last Admin: 09/09/17 10:32 Dose: 2.5 mg Docusate Sodium (Colace -) 100 mg PO DAILY [facility] Last Admin: 09/09/17 10:32 Dose: 100 mg Heparin Sodium (Porcine) (Heparin -) 5,000 unit SQ BID [facility] Last Admin: 09/09/17 10:39 Dose: 5,000 unit Piperacillin Sod/Tazobactam (Sod 3.375 gm/ Dextrose) 50 mls @ 100 mls/hr IVPB Q8H-IV [facility] PRN Reason: Protocol Last Admin: 09/09/17 10:32 Dose: 100 mls/hr Vancomycin HCl 1,250 mg/ (Dextrose) 250 mls @ 250 mls/hr IVPB DAILY [facility] PRN Reason: Protocol Last Admin: 09/09/17 11:42 Dose: 250 mls/hr Dextrose/Sodium Chloride (D5-1/2ns -) 1,000 mls @ 100 mls/hr IV ASDIR [facility] Last Admin: 09/09/17 10:32 Dose: 100 mls/hr Oxycodone HCl (Roxicodone -) 5 mg PO Q4H PRN PRN Reason: PAIN - Objective Vital Signs: Vital Signs Temperature 98.2 F 09/09/17 10:00 Pulse Rate 73 09/09/17 10:00 Respiratory Rate 18 09/09/17 10:00 Blood Pressure 130/85 09/09/17 10:00 O2 Sat by Pulse Oximetry (%) 97 09/09/17 10:00 Constitutional: Yes: No Distress, Calm Cardiovascular: Yes: Regular Rate and Rhythm Respiratory: Yes: Regular, CTA Bilaterally Gastrointestinal: Yes: Normal Bowel Sounds, Soft Musculoskeletal: Yes: Other Extremities: Yes: Other Neurological: Yes: Alert, Oriented Psychiatric: Yes: Alert, Oriented Labs: CBC, BMP 09/08/17 07:28 09/08/17 07:30 INR, PTT INR 1.19 (0.82-1.09) H 09/07/17 13:43 Assessment/Plan Problem List - Problems (1) Cellulitis and abscess of left leg Code(s): L03.116 - CELLULITIS OF LEFT LOWER LIMB; L02.416 - CUTANEOUS ABSCESS OF LEFT LOWER LIMB (2) Benign essential hypertension Code(s): I10 - ESSENTIAL (PRIMARY) HYPERTENSION leukocytosis plan will continue iv abx await for surgery to drain wbc trending down rest as per primary
--- NOTE | 2017-09-09 17:22 | PN ---
Progress Note, Physician History of Present Illness: pain better - Current Medication List Current Medications: Active Medications Acetaminophen (Tylenol -) 650 mg PO Q6H PRN PRN Reason: FEVER OR PAIN Amlodipine Besylate (Norvasc -) 2.5 mg PO DAILY [facility] Last Admin: 09/09/17 10:32 Dose: 2.5 mg Docusate Sodium (Colace -) 100 mg PO DAILY [facility] Last Admin: 09/09/17 10:32 Dose: 100 mg Heparin Sodium (Porcine) (Heparin -) 5,000 unit SQ BID [facility] Last Admin: 09/09/17 10:39 Dose: 5,000 unit Piperacillin Sod/Tazobactam (Sod 3.375 gm/ Dextrose) 50 mls @ 100 mls/hr IVPB Q8H-IV [facility] PRN Reason: Protocol Last Admin: 09/09/17 10:32 Dose: 100 mls/hr Vancomycin HCl 1,250 mg/ (Dextrose) 250 mls @ 250 mls/hr IVPB DAILY [facility] PRN Reason: Protocol Last Admin: 09/09/17 11:42 Dose: 250 mls/hr Dextrose/Sodium Chloride (D5-1/2ns -) 1,000 mls @ 100 mls/hr IV ASDIR [facility] Last Admin: 09/09/17 10:32 Dose: 100 mls/hr Oxycodone HCl (Roxicodone -) 5 mg PO Q4H PRN PRN Reason: PAIN - Objective Vital Signs: Vital Signs Temperature 98.3 F 09/09/17 14:58 Pulse Rate 80 09/09/17 14:58 Respiratory Rate 18 09/09/17 14:58 Blood Pressure 125/65 09/09/17 14:58 O2 Sat by Pulse Oximetry (%) 97 09/09/17 10:00 Constitutional: Yes: No Distress HENT: Yes: Atraumatic Neck: Yes: Supple Cardiovascular: Yes: Regular Rate and Rhythm Respiratory: Yes: CTA Bilaterally Gastrointestinal: Yes: Normal Bowel Sounds Extremities: Yes: Other (LEFT THIGH CELLULITIS IMPROVING) Neurological: Yes: Alert, Oriented Labs: CBC, BMP 09/08/17 07:28 09/08/17 07:30 INR, PTT INR 1.19 (0.82-1.09) H 09/07/17 13:43 Problem List - Problems (1) Cellulitis and abscess of left leg Assessment/Plan: iv abx bcx id consult prn pain meds Code(s): L03.116 - CELLULITIS OF LEFT LOWER LIMB; L02.416 - CUTANEOUS ABSCESS OF LEFT LOWER LIMB
[2017-09-09] MEDS ORDERED: LIDOCAINE HCL 1%, 10 MG/ML (20ML VIAL) ONE (17:28)
--- NOTE | 2017-09-09 18:32 | PROC ---
Incision and Drainage Indication/Location: left upper inner thigh abscess with cellulitis Risks and Benefits Explained: Yes Consent on Chart: Yes Betadine cleansed: Yes Anesthesia: 1% Lidocaine Blade Size: 15 Drainage: purulent, ~3ml Irrigated with Normal Saline: No (with local anesthetic) Iodinated Packin/ in Sterile Dressing Applied: Yes - Remarks Remarks: betadine prep; 13ml local infiltrated around and under abscess site; thin ellipse of skin excised including punctum; pus cultured; loculations broken up manuallly, cavity about 2cm deep; additional few ml of local used at base of wound, hemostasis with local pressure; packed and covered with gauze and tape
[2017-09-09] MEDS: oxyCODONE HCL 5 MG TABLET PO PRN (18:44)
[2017-09-10] MEDS ORDERED: PT OWN MED DRAWER 7, Y5N ONE ×3 (01:22→16:39)
[2017-09-10] MEDS: PIPERACILLIN/TAZOB 3.375 GM 3.375 GM in DEXTROSE 5%-WATER - 50 ML IVPB SCH ×3 (01:53→17:04)
[2017-09-10] MEDS: DEXTROSE 5%-0.45% SALINE 1,000 ML IV SCH ×2 (04:30→09:48)
[2017-09-10] MEDS: oxyCODONE HCL 5 MG TABLET PO PRN (04:30)
[2017-09-10] MEDS: amLODIPine BESYLATE 2.5 MG TABLET (FP) PO SCH (09:48)
[2017-09-10] MEDS: HEPARIN NA (PORCINE) 5,000 UNITS/ML 1ML VIAL SQ SCH ×2 (09:48→22:10)
[2017-09-10] MEDS: DOCUSATE SODIUM 100 MG CAPSULE (FP) PO SCH (09:49)
[2017-09-10] MEDS: VANCOMYCIN 1,250 MG in DEXTROSE 5%-WATER - 250 ML IVPB SCH (11:12)
--- NOTE | 2017-09-10 11:39 | PN ---
Progress Note, Physician Chief Complaint: left thigh swelling, redness, pain History of Present Illness: s/p I&D of left inner thigh abscess h/o MRSA with suspected recurrent abscess and cellulitis pt feeling better, seen and examined in bed no fevers no nausea pain, tenderness improving - Current Medication List Current Medications: Active Medications Acetaminophen (Tylenol -) 650 mg PO Q6H PRN PRN Reason: FEVER OR PAIN Last Admin: 09/10/17 04:30 Dose: 650 mg Amlodipine Besylate (Norvasc -) 2.5 mg PO DAILY [facility] Last Admin: 09/10/17 09:48 Dose: 2.5 mg Docusate Sodium (Colace -) 100 mg PO DAILY [facility] Last Admin: 09/10/17 09:49 Dose: 100 mg Heparin Sodium (Porcine) (Heparin -) 5,000 unit SQ BID [facility] Last Admin: 09/10/17 09:48 Dose: 5,000 unit Piperacillin Sod/Tazobactam (Sod 3.375 gm/ Dextrose) 50 mls @ 100 mls/hr IVPB Q8H-IV [facility] PRN Reason: Protocol Last Admin: 09/10/17 09:48 Dose: 100 mls/hr Vancomycin HCl 1,250 mg/ (Dextrose) 250 mls @ 250 mls/hr IVPB DAILY [facility] PRN Reason: Protocol Last Admin: 09/10/17 11:12 Dose: 250 mls/hr Dextrose/Sodium Chloride (D5-1/2ns -) 1,000 mls @ 100 mls/hr IV ASDIR [facility] Last Admin: 09/10/17 09:48 Dose: 100 mls/hr Oxycodone HCl (Roxicodone -) 5 mg PO Q4H PRN PRN Reason: PAIN Last Admin: 09/10/17 04:30 Dose: 5 mg - Objective Vital Signs: Vital Signs Temperature 97.9 F 09/10/17 06:00 Pulse Rate 69 09/10/17 06:00 Respiratory Rate 18 09/10/17 06:00 Blood Pressure 129/78 09/10/17 06:00 O2 Sat by Pulse Oximetry (%) 98 09/09/17 21:00 Constitutional: Yes: Well Nourished, No Distress, Calm Eyes: Yes: Conjunctiva Clear, EOM Intact Extremities: Yes: Erythema (right posterior thigh with cellulitis at small lesion slightly improved; redness around I&D site decreasing). No: Cool, Cyanosis Edema: No Integumentary: Yes: Erythema (decreasing), Incision (L medial thigh). No: Rash Wound/Incision: Yes: Dressing Removed (and packing changed - wound cavity clean , no purulence, mild residual induration surrounding, tender but less than yesterday - repacked with 1/4" iodoform), Reddened (less erythema), Unapproximated (L medial thigh). No: Dressing Dry and Intact (blood staining/ serosang drainage) Neurological: Yes: Alert, Oriented Labs: no new labs Problem List - Problems (1) Cellulitis and abscess of left leg Assessment/Plan: POD1 s/p I&D left medial thigh abscess, also with right posterior thigh cellulitis cellulitis improving at both sites culture pending probably MRSA continue antibiotics per ID packing changed, 1/4" iodoform at bedside will need continued daily wound care with packing changes may need VNS set up for d/c - patient did own dressings last time this happened will follow instructions in D/C plan pt to leave with remainder of packing and suture removal kit (forceps and scissors) she will need to get gauze and tape for covering Dr. Brady will be covering through Thursday Code(s): L03.116 - CELLULITIS OF LEFT LOWER LIMB; L02.416 - CUTANEOUS ABSCESS OF LEFT LOWER LIMB (2) Benign essential hypertension Code(s): I10 - ESSENTIAL (PRIMARY) HYPERTENSION
--- NOTE | 2017-09-10 16:57 | PN ---
Progress Note, Physician History of Present Illness: stable no new issues says she feels better - Current Medication List Current Medications: Active Medications Acetaminophen (Tylenol -) 650 mg PO Q6H PRN PRN Reason: FEVER OR PAIN Last Admin: 09/10/17 04:30 Dose: 650 mg Amlodipine Besylate (Norvasc -) 2.5 mg PO DAILY [facility] Last Admin: 09/10/17 09:48 Dose: 2.5 mg Docusate Sodium (Colace -) 100 mg PO DAILY [facility] Last Admin: 09/10/17 09:49 Dose: 100 mg Heparin Sodium (Porcine) (Heparin -) 5,000 unit SQ BID [facility] Last Admin: 09/10/17 09:48 Dose: 5,000 unit Piperacillin Sod/Tazobactam (Sod 3.375 gm/ Dextrose) 50 mls @ 100 mls/hr IVPB Q8H-IV [facility] PRN Reason: Protocol Last Admin: 09/10/17 09:48 Dose: 100 mls/hr Vancomycin HCl 1,250 mg/ (Dextrose) 250 mls @ 250 mls/hr IVPB DAILY [facility] PRN Reason: Protocol Last Admin: 09/10/17 11:12 Dose: 250 mls/hr Dextrose/Sodium Chloride (D5-1/2ns -) 1,000 mls @ 100 mls/hr IV ASDIR [facility] Last Admin: 09/10/17 09:48 Dose: 100 mls/hr Oxycodone HCl (Roxicodone -) 5 mg PO Q4H PRN PRN Reason: PAIN Last Admin: 09/10/17 04:30 Dose: 5 mg - Objective Vital Signs: Vital Signs Temperature 97.8 F 09/10/17 10:00 Pulse Rate 67 09/10/17 10:00 Respiratory Rate 20 09/10/17 10:00 Blood Pressure 117/74 09/10/17 10:00 O2 Sat by Pulse Oximetry (%) 97 09/10/17 09:00 Constitutional: Yes: No Distress, Calm Cardiovascular: Yes: Regular Rate and Rhythm Respiratory: Yes: Regular, CTA Bilaterally Gastrointestinal: Yes: Normal Bowel Sounds, Soft Musculoskeletal: Yes: Other Extremities: Yes: Erythema (improved), Other Integumentary: Yes: Rash (resolving) Wound/Incision: Yes: Dressing Dry and Intact Neurological: Yes: Alert, Oriented Psychiatric: Yes: Alert, Oriented Labs: CBC, BMP 09/08/17 07:28 09/08/17 07:30 INR, PTT INR 1.19 (0.82-1.09) H 09/07/17 13:43 Assessment/Plan Problem List - Problems (1) Cellulitis and abscess of left leg Code(s): L03.116 - CELLULITIS OF LEFT LOWER LIMB; L02.416 - CUTANEOUS ABSCESS OF LEFT LOWER LIMB (2) Benign essential hypertension Code(s): I10 - ESSENTIAL (PRIMARY) HYPERTENSION leukocytosis plan will continue iv abx await for cx reports once we have that we will decide further mgmt rest as per primary team
--- NOTE | 2017-09-10 17:52 | PN ---
Progress Note, Physician - Current Medication List Current Medications: Active Medications Acetaminophen (Tylenol -) 650 mg PO Q6H PRN PRN Reason: FEVER OR PAIN Last Admin: 09/10/17 04:30 Dose: 650 mg Amlodipine Besylate (Norvasc -) 2.5 mg PO DAILY [facility] Last Admin: 09/10/17 09:48 Dose: 2.5 mg Docusate Sodium (Colace -) 100 mg PO DAILY [facility] Last Admin: 09/10/17 09:49 Dose: 100 mg Heparin Sodium (Porcine) (Heparin -) 5,000 unit SQ BID [facility] Last Admin: 09/10/17 09:48 Dose: 5,000 unit Piperacillin Sod/Tazobactam (Sod 3.375 gm/ Dextrose) 50 mls @ 100 mls/hr IVPB Q8H-IV [facility] PRN Reason: Protocol Last Admin: 09/10/17 17:04 Dose: 100 mls/hr Vancomycin HCl 1,250 mg/ (Dextrose) 250 mls @ 250 mls/hr IVPB DAILY [facility] PRN Reason: Protocol Last Admin: 09/10/17 11:12 Dose: 250 mls/hr Dextrose/Sodium Chloride (D5-1/2ns -) 1,000 mls @ 100 mls/hr IV ASDIR [facility] Last Admin: 09/10/17 09:48 Dose: 100 mls/hr - Objective Vital Signs: Vital Signs Temperature 97.8 F 09/10/17 10:00 Pulse Rate 67 09/10/17 10:00 Respiratory Rate 20 09/10/17 10:00 Blood Pressure 117/74 09/10/17 10:00 O2 Sat by Pulse Oximetry (%) 97 09/10/17 09:00 Constitutional: Yes: No Distress HENT: Yes: Atraumatic Neck: Yes: Supple Cardiovascular: Yes: Regular Rate and Rhythm Respiratory: Yes: CTA Bilaterally Gastrointestinal: Yes: Normal Bowel Sounds Extremities: Yes: Other (l thigh cellulitis much improved) Neurological: Yes: Alert, Oriented Labs: CBC, BMP 09/08/17 07:28 09/08/17 07:30 INR, PTT INR 1.19 (0.82-1.09) H 09/07/17 13:43 Problem List - Problems (1) Cellulitis and abscess of left leg Assessment/Plan: iv abx bcx id consult prn pain meds wound cxs p Code(s): L03.116 - CELLULITIS OF LEFT LOWER LIMB; L02.416 - CUTANEOUS ABSCESS OF LEFT LOWER LIMB
[2017-09-11] MEDS: PIPERACILLIN/TAZOB 3.375 GM 3.375 GM in DEXTROSE 5%-WATER - 50 ML IVPB SCH ×2 (01:26→10:10)
--- NOTE | 2017-09-11 07:03 | PN ---
Progress Note, Physician Chief Complaint: left thigh pain and swelling History of Present Illness: s/p incision and drainage of left thigh abscess - would culture still pending Has a h/o MRSA treated with previous I&D of a flank. She reports the left thigh site pain is greatly improved. she remained afebrile and has been ambulating normally. she is tolerating her IV antibiotics (vanco and zosyn) ID is on board. - Current Medication List Current Medications: Active Medications Acetaminophen (Tylenol -) 650 mg PO Q6H PRN PRN Reason: FEVER OR PAIN Last Admin: 09/10/17 04:30 Dose: 650 mg Amlodipine Besylate (Norvasc -) 2.5 mg PO DAILY [facility] Last Admin: 09/10/17 09:48 Dose: 2.5 mg Docusate Sodium (Colace -) 100 mg PO DAILY [facility] Last Admin: 09/10/17 09:49 Dose: 100 mg Heparin Sodium (Porcine) (Heparin -) 5,000 unit SQ BID [facility] Last Admin: 09/10/17 22:10 Dose: 5,000 unit Piperacillin Sod/Tazobactam (Sod 3.375 gm/ Dextrose) 50 mls @ 100 mls/hr IVPB Q8H-IV [facility] PRN Reason: Protocol Last Admin: 09/11/17 01:26 Dose: 100 mls/hr Vancomycin HCl 1,250 mg/ (Dextrose) 250 mls @ 250 mls/hr IVPB DAILY [facility] PRN Reason: Protocol Last Admin: 09/10/17 11:12 Dose: 250 mls/hr Dextrose/Sodium Chloride (D5-1/2ns -) 1,000 mls @ 100 mls/hr IV ASDIR [facility] Last Admin: 09/10/17 09:48 Dose: 100 mls/hr - Objective Vital Signs: Vital Signs Temperature 97.8 F 09/11/17 06:00 Pulse Rate 68 09/11/17 06:00 Respiratory Rate 18 09/11/17 06:00 Blood Pressure 127/77 09/11/17 06:00 O2 Sat by Pulse Oximetry (%) 97 09/10/17 22:00 Constitutional: Yes: Well Nourished, No Distress, Calm Eyes: Yes: Conjunctiva Clear, EOM Intact HENT: Yes: Atraumatic, Normocephalic Neck: Yes: Supple, Trachea Midline Cardiovascular: Yes: Regular Rate and Rhythm, S1, S2 Respiratory: Yes: Regular, CTA Bilaterally Gastrointestinal: Yes: Normal Bowel Sounds, Soft Musculoskeletal: No: Joint Stiffness, Joint Swelling, Muscle Pain, Muscle Weakness Extremities: No: Calf Tenderness, Cool, Cyanosis Integumentary: Yes: Other (left thigh wound). No: Jaundice Wound/Incision: Yes: Dressing Removed, Other (Left thigh medial aspect, measures 1.2 X 0.8 X 1.0 cm elipse, perincsional redness is improved compared to yesterday, the skina also appears softer, drainge is patricio, packing was not soaked) Neurological: Yes: Alert, Oriented Psychiatric: Yes: Alert, Oriented Labs: CBC, BMP 09/08/17 07:28 09/08/17 07:30 INR, PTT INR 1.19 (0.82-1.09) H 09/07/17 13:43 Microbiology 09/07/17 13:43 Blood - Peripheral Venous Blood Culture - Preliminary NO GROWTH OBTAINED AFTER 72 HOURS, INCUBATION TO CONTINUE FOR 2 DAYS. 09/07/17 13:43 Blood - Peripheral Venous Blood Culture - Preliminary NO GROWTH OBTAINED AFTER 72 HOURS, INCUBATION TO CONTINUE FOR 2 DAYS. 09/08/17 15:45 Nares - Mrsa Screen - Left MRSA Screen - Final NO MRSA ISOLATED 09/08/17 15:45 Nares - Mrsa Screen - Right MRSA Screen - Final NO MRSA ISOLATED 09/07/17 19:16 Urine - Urine Clean Catch Urine Culture - Final NO GROWTH OBTAINED vanco trough 5.34 Problem List - Problems (1) Cellulitis and abscess of left leg Assessment/Plan: Left thigh abscess s/p I&D 3rd dressing change - clinically improving, wbc down to 11 from 17.3 Dressing changed this morning, measures 1.2X0.8X1cm, packed 1/4 inch strip and cover with 2X2" gauze and paper tape daily upon discharge pain is adequately controlled f/u wound cultures which is pending Continue IV antibiotics, convert to PO upon D/C she changed her own dressings with last abscess, but may benefit from VNS given current location of left thigh discuss progress with Dr Cr Code(s): L03.116 - CELLULITIS OF LEFT LOWER LIMB; L02.416 - CUTANEOUS ABSCESS OF LEFT LOWER LIMB (2) Benign essential hypertension Assessment/Plan: appears controlled per primary team Code(s): I10 - ESSENTIAL (PRIMARY) HYPERTENSION (3) Cellulitis of right thigh Assessment/Plan: appears improved Code(s): L03.115 - CELLULITIS OF RIGHT LOWER LIMB (4) Wound infection Assessment/Plan: cellulitis - improved with current IV antibiotics Code(s): T14.8 - OTHER INJURY OF UNSPECIFIED BODY REGION * DO NOT USE *; L08.9 - LOCAL INFECTION OF THE SKIN AND SUBCUTANEOUS TISSUE, UNSP
[2017-09-11] MEDS: amLODIPine BESYLATE 2.5 MG TABLET (FP) PO SCH (10:41)
[2017-09-11] MEDS: DOCUSATE SODIUM 100 MG CAPSULE (FP) PO SCH (10:41)
[2017-09-11] MEDS: HEPARIN NA (PORCINE) 5,000 UNITS/ML 1ML VIAL SQ SCH ×2 (10:41→21:55)
[2017-09-11] MEDS: VANCOMYCIN 1,250 MG in DEXTROSE 5%-WATER - 250 ML IVPB SCH (10:44)
--- NOTE | 2017-09-11 15:43 | PN ---
Progress Note, Physician History of Present Illness: doing well no new issues - Current Medication List Current Medications: Active Medications Acetaminophen (Tylenol -) 650 mg PO Q6H PRN PRN Reason: FEVER OR PAIN Last Admin: 09/10/17 04:30 Dose: 650 mg Amlodipine Besylate (Norvasc -) 2.5 mg PO DAILY [facility] Last Admin: 09/11/17 10:41 Dose: 2.5 mg Docusate Sodium (Colace -) 100 mg PO DAILY [facility] Last Admin: 09/11/17 10:41 Dose: 100 mg Heparin Sodium (Porcine) (Heparin -) 5,000 unit SQ BID [facility] Last Admin: 09/11/17 10:41 Dose: 5,000 unit Piperacillin Sod/Tazobactam (Sod 3.375 gm/ Dextrose) 50 mls @ 100 mls/hr IVPB Q8H-IV [facility] PRN Reason: Protocol Last Admin: 09/11/17 10:10 Dose: 100 mls/hr Vancomycin HCl 1,250 mg/ (Dextrose) 250 mls @ 250 mls/hr IVPB DAILY [facility] PRN Reason: Protocol Last Admin: 09/11/17 10:44 Dose: 250 mls/hr Dextrose/Sodium Chloride (D5-1/2ns -) 1,000 mls @ 100 mls/hr IV ASDIR [facility] Last Admin: 09/10/17 09:48 Dose: 100 mls/hr - Objective Vital Signs: Vital Signs Temperature 98.3 F 09/11/17 09:52 Pulse Rate 78 09/11/17 09:52 Respiratory Rate 18 09/11/17 09:52 Blood Pressure 130/79 09/11/17 09:52 O2 Sat by Pulse Oximetry (%) 98 09/11/17 09:00 Constitutional: Yes: No Distress, Calm Cardiovascular: Yes: Regular Rate and Rhythm Respiratory: Yes: Regular, CTA Bilaterally Gastrointestinal: Yes: Normal Bowel Sounds, Soft Musculoskeletal: Yes: Other Extremities: Yes: Other Neurological: Yes: Alert, Oriented Psychiatric: Yes: Alert, Oriented Labs: CBC, BMP 09/08/17 07:28 09/08/17 07:30 INR, PTT INR 1.19 (0.82-1.09) H 09/07/17 13:43 Assessment/Plan Problem List - Problems (1) Cellulitis and abscess of left leg Code(s): L03.116 - CELLULITIS OF LEFT LOWER LIMB; L02.416 - CUTANEOUS ABSCESS OF LEFT LOWER LIMB (2) Benign essential hypertension Code(s): I10 - ESSENTIAL (PRIMARY) HYPERTENSION leukocytosis plan will continue iv abx stopped zosyn await for sensitivites rest as per primary team
--- NOTE | 2017-09-11 17:24 | PN ---
Progress Note, Physician - Current Medication List Current Medications: Active Medications Acetaminophen (Tylenol -) 650 mg PO Q6H PRN PRN Reason: FEVER OR PAIN Last Admin: 09/10/17 04:30 Dose: 650 mg Amlodipine Besylate (Norvasc -) 2.[address] [facility] Last Admin: 09/11/17 10:41 Dose: 2.5 mg Docusate Sodium (Colace -) [address] [facility] Last Admin: 09/11/17 10:41 Dose: 100 mg Heparin Sodium (Porcine) (Heparin -) 5,[address] [facility] Last Admin: 09/11/17 10:41 Dose: 5,000 unit Vancomycin HCl 1,250 mg/ (Dextrose) 250 mls @ 250 mls/hr IVPB DAILY [facility] PRN Reason: Protocol Last Admin: 09/11/17 10:44 Dose: 250 mls/hr Dextrose/Sodium Chloride (D5-1/2ns -) 1,000 mls @ 100 mls/hr IV ASDIR [facility] Last Admin: 09/10/17 09:48 Dose: 100 mls/hr - Objective Vital Signs: Vital Signs Temperature 98.0 F 09/11/17 15:58 Pulse Rate 77 09/11/17 15:58 Respiratory Rate 18 09/11/17 15:58 Blood Pressure 118/77 09/11/17 15:58 O2 Sat by Pulse Oximetry (%) 98 09/11/17 09:00 Constitutional: Yes: No Distress HENT: Yes: Atraumatic Neck: Yes: Supple Cardiovascular: Yes: Regular Rate and Rhythm Respiratory: Yes: CTA Bilaterally Extremities: Yes: Other (LEFT THIGH CELLULITIS MUCH IMPROVED) Neurological: Yes: Alert, Oriented Labs: CBC, BMP 09/08/17 07:28 09/08/17 07:30 INR, PTT INR 1.19 (0.82-1.09) H 09/07/17 13:43 Problem List - Problems (1) Cellulitis and abscess of left leg Assessment/Plan: iv abx bcx id consult prn pain meds wound cxs p Code(s): L03.116 - CELLULITIS OF LEFT LOWER LIMB; L02.416 - CUTANEOUS ABSCESS OF LEFT LOWER LIMB
[2017-09-11] MEDS: DEXTROSE 5%-0.45% SALINE 1,000 ML IV SCH (18:24)
--- NOTE | 2017-09-12 07:02 | PN ---
Progress Note, Physician Chief Complaint: left thigh pain and swelling History of Present Illness: s/p incision and drainage of left thigh abscess - cultures preliminarily are MRSA. She reports the left thigh site pain is greatly improved. she remained afebrile and has been ambulating normally. she is tolerating her IV antibiotics (vanco and zosyn) ID is on board to decide on a home antibiotic regimen. - Current Medication List Current Medications: Active Medications Acetaminophen (Tylenol -) 650 mg PO Q6H PRN PRN Reason: FEVER OR PAIN Last Admin: 09/10/17 04:30 Dose: 650 mg Amlodipine Besylate (Norvasc -) 2.5 mg PO DAILY [facility] Last Admin: 09/11/17 10:41 Dose: 2.5 mg Docusate Sodium (Colace -) 100 mg PO DAILY [facility] Last Admin: 09/11/17 10:41 Dose: 100 mg Heparin Sodium (Porcine) (Heparin -) 5,000 unit SQ BID [facility] Last Admin: 09/11/17 21:55 Dose: 5,000 unit Vancomycin HCl 1,250 mg/ (Dextrose) 250 mls @ 250 mls/hr IVPB [facility]ILY [facility] PRN Reason: Protocol Last Admin: 09/11/17 10:44 Dose: 250 mls/hr - Objective Vital Signs: Vital Signs Temperature 97.4 F L 09/12/17 06:00 Pulse Rate 70 09/12/17 06:00 Respiratory Rate 18 09/12/17 06:00 Blood Pressure 117/80 09/12/17 06:00 O2 Sat by Pulse Oximetry (%) 98 09/11/17 21:00 Constitutional: Yes: Well Nourished, No Distress Eyes: Yes: Conjunctiva Clear, EOM Intact HENT: Yes: Atraumatic, Normocephalic Neck: Yes: Supple, Trachea Midline Cardiovascular: Yes: Regular Rate and Rhythm, S1, S2. No: Murmur Respiratory: Yes: Regular, CTA Bilaterally Gastrointestinal: Yes: Normal Bowel Sounds, Soft Musculoskeletal: No: Joint Swelling, Muscle Weakness Wound/Incision: Yes: Clean/Dry, Dressing Removed, Unapproximated (erythema and induration mostly resolved, removed packing strip not soaked) Neurological: Yes: Alert, Oriented Psychiatric: Yes: Alert, Oriented Labs: Microbiology 09/07/17 13:43 Blood Culture - Preliminary Blood - Peripheral Venous NO GROWTH OBTAINED AFTER 96 HOURS, INCUBATION TO CONTINUE FOR 1 DAYS. 09/07/17 13:43 Blood Culture - Preliminary Blood - Peripheral Venous NO GROWTH OBTAINED AFTER 96 HOURS, INCUBATION TO CONTINUE FOR 1 DAYS. 09/09/17 18:30 Gram Stain - Final Thigh - Left Wound Culture - Preliminary Presumptive Mrsa (Pbp2a Pos) Problem List - Problems (1) Cellulitis and abscess of left leg Assessment/Plan: Left thigh abscess s/p I&D 4rd dressing change - clinically improving, wbc down to 11 from 17.3 Dressing changed this morning, measures 1.2X0.8X1cm, packed 1/4 inch iodoform packing strip, 2X2" gauze sponge coverand paper tape daily upon discharge pain is adequately controlled f/u with ID for antibiotic regimen for home she was shown how to change her own dressing, she feel capable of this daily change. She was also given bathing instructions. she is cleared for discharge Code(s): L03.116 - CELLULITIS OF LEFT LOWER LIMB; L02.416 - CUTANEOUS ABSCESS OF LEFT LOWER LIMB (2) Benign essential hypertension Code(s): I10 - ESSENTIAL (PRIMARY) HYPERTENSION (3) Cellulitis of right thigh Code(s): L03.115 - CELLULITIS OF RIGHT LOWER LIMB (4) Wound infection Code(s): T14.8 - OTHER INJURY OF UNSPECIFIED BODY REGION * DO NOT USE *; L08.9 - LOCAL INFECTION OF THE SKIN AND SUBCUTANEOUS TISSUE, UNSP
[2017-09-12] MEDS ORDERED: PT OWN MED DRAWER 7, Y5N ONE (10:19)
[2017-09-12] MEDS: DOCUSATE SODIUM 100 MG CAPSULE (FP) PO SCH (10:29)
[2017-09-12] MEDS: HEPARIN NA (PORCINE) 5,000 UNITS/ML 1ML VIAL SQ SCH (10:29)
[2017-09-12] MEDS: amLODIPine BESYLATE 2.5 MG TABLET (FP) PO SCH (10:29)
[2017-09-12] MEDS: VANCOMYCIN 1,250 MG in DEXTROSE 5%-WATER - 250 ML IVPB SCH (10:47)
--- NOTE | 2017-09-12 15:41 | PN ---
Progress Note, Physician History of Present Illness: doing well no new issues wound looking good - Current Medication List Current Medications: Active Medications Acetaminophen (Tylenol -) 650 mg PO Q6H PRN PRN Reason: FEVER OR PAIN Last Admin: 09/10/17 04:30 Dose: 650 mg Amlodipine Besylate (Norvasc -) 2.5 mg PO DAILY [facility] Last Admin: 09/12/17 10:29 Dose: 2.5 mg Docusate Sodium (Colace -) 100 mg PO DAILY [facility] Last Admin: 09/12/17 10:29 Dose: 100 mg Heparin Sodium (Porcine) (Heparin -) 5,000 unit SQ BID [facility] Last Admin: 09/12/17 10:29 Dose: 5,000 unit Vancomycin HCl 1,250 mg/ (Dextrose) 250 mls @ 250 mls/hr IVPB DAILY [facility] PRN Reason: Protocol Last Admin: 09/12/17 10:47 Dose: 250 mls/hr - Objective Vital Signs: Vital Signs Temperature 97.4 F L 09/12/17 10:00 Pulse Rate 80 09/12/17 10:00 Respiratory Rate 20 09/12/17 10:00 Blood Pressure 143/80 09/12/17 10:00 O2 Sat by Pulse Oximetry (%) 98 09/12/17 09:00 Constitutional: Yes: No Distress, Calm Respiratory: Yes: Regular, CTA Bilaterally Gastrointestinal: Yes: Normal Bowel Sounds, Soft Musculoskeletal: Yes: WNL Extremities: Yes: Other Wound/Incision: Yes: Dressing Dry and Intact Neurological: Yes: Alert, Oriented Psychiatric: Yes: Alert, Oriented Labs: CBC, BMP 09/08/17 07:28 09/08/17 07:30 INR, PTT INR 1.19 (0.82-1.09) H 09/07/17 13:43 Assessment/Plan Problem List - Problems (1) Cellulitis and abscess of left leg Code(s): L03.116 - CELLULITIS OF LEFT LOWER LIMB; L02.416 - CUTANEOUS ABSCESS OF LEFT LOWER LIMB (2) Benign essential hypertension Code(s): I10 - ESSENTIAL (PRIMARY) HYPERTENSION leukocytosis plan will change abx to doxycycline rest as per primary
[2017-09-12 19:59] VITALS: BP 128/81; PULSE 76; TEMP 98.4
--- NOTE | 2017-09-14 20:16 | DS ---
Physical Examination Vital Signs: Vital Signs Temperature 98.4 F 09/12/17 14:00 Pulse Rate 76 09/12/17 14:00 Respiratory Rate 20 09/12/17 14:00 Blood Pressure 128/81 09/12/17 14:00 O2 Sat by Pulse Oximetry (%) 98 09/12/17 09:00 Labs: CBC, BMP 09/08/17 07:28 09/08/17 07:30 Discharge Summary Reason For Visit: CELLULITIS & ABSCESS OF LLE Condition: Stable - Instructions Diet, Activity, Other Instructions: Postoperative instructions: You had an incision and drainage of left thigh abscess on 09/09/[address] Javier Cr of [facility]. Activity: Resume your usual activities gradually. You may shower daily with the dressing off and packing out of your wound; you cannot hurt the wound with soap and water. Do not use peroxide or alcohol or any ointments on the area. Pat the incision area dry after. Wound Care: After cleansing, repack the wound with 1/4" iodoform/ribbon gauze and cover it with dry gauze and tape. Do this once a day. You may need to buy dressing supplies (gauze, tape, etc.) [facility]. Wash your hands before and after doing your dressing. Pain: For pain, you may use and alternate Tylenol (acetaminophen) and/or ibuprofen every 6 hours each as needed; this means that you can take one OR the other at 3-hour intervals. If you are prescribed a Tylenol/narcotic combination for severe pain, use it instead of plain Tylenol as needed and switch back when your pain starts decreasing. Do not take more than 3000mg of acetaminophen in a day. Take medications as prescribed or indicated on the labeling. Follow-up: Call Dr. Cr's office at [phone] to make your postop appointment. Clinic is held on Wednesdays in the Diagnostic [facility] on the first floor of [facility]. Call the office if you have: * increasing pain not responsive to pain medication * fever of 101F or higher * vomiting * unusual or increasing bleeding or drainage from wounds * increasing redness or swelling at wound sites Also, see your primary medical doctor within 1-2 weeks. Referrals: Timothy Kilgore MD [Staff Physician] - Nimco Story [Primary Care Provider] - Giovanny Trotter MD [Staff Physician] - Javier Cr MD [Staff Physician] - 1 Week Disposition: HOME - Home Medications Comprehensive Discharge Medication List: Ambulatory Orders Amlodipine Besylate [Norvasc -] 2.5 mg PO DAILY 09/07/17 Doxycycline Hyclate 100 mg PO BID 10 Days capsule 09/12/17 fu for cx results
== END 2017-09-12 16:30 | disposition home or self-care (01) | DRG 603 ==
LOC: JER 10:23 → JERBED 15:27 → J5S 16:53
PROVIDERS: ADMIT Internal Medicine; ATTEND Internal Medicine
PROC: 0Y9D0ZX Drainage of Left Upper Leg, Open Approach, Diagnostic (ICD-10-PCS; principal; 2017-09-09)
DX: L03.116 Cellulitis of left lower limb (principal); I10 Essential (primary) hypertension; L02.416 Cutaneous abscess of left lower limb; L03.115 Cellulitis of right lower limb; B95.62 Methicillin resistant Staphylococcus aureus infection as the cause of diseases classified elsewhere; D72.828 Other elevated white blood cell count; Z86.14 Personal history of Methicillin resistant Staphylococcus aureus infection
CPT/HCPCS: 36415; 80053; 81003; 81015; 85025; 85610; 87040; 87070; 87081; 87086; 87186; 87205; 99282-25; G0480; J1644

== ENCOUNTER 2017-10-06 21:41 | Emergency (ER) | payer OTHER ==
[2017-10-06 21:57] VITALS: BMI 28.3
--- NOTE | 2017-10-06 21:57 | PDOC ---
Rapid Medical Evaluation Medical Evaluation: Allergies Allergy/AdvReac Type Severity Reaction Status Date / Time No Known Drug Allergies Allergy Verified 09/07/17 10:49 SEAFOOD Allergy Intermediate VOMITTING Uncoded 09/07/17 10:49 10/06/17 21:52 I have performed a brief in-person evaluation of this patient. The patient presents with a chief complaint of: saw PCP today, dx with otitis, put on bactrim, took at 6 pm began having generalized pain/chills at 7, denies NVD, Dr. Nimco Mast PCP Pertinent physical exam findings: uncomfortable appearing I have ordered the following: CBC, CMP, Toradol, Benadryl, IVF The patient will proceed to the ED for further evaluation.
[2017-10-06] MEDS ORDERED: KETOROLAC TROMETHAMINE 30 MG/1 ML VIAL IVPUSH ONE (21:58)
[2017-10-06] MEDS ORDERED: SODIUM CHLORIDE 0.9% 1000 ML INFUS.BAG IV ONE (21:58)
[2017-10-06] MEDS ORDERED: KETOROLAC TROMETHAMINE 30 MG/1 ML VIAL ONE (22:27)
--- NOTE | 2017-10-06 22:31 | PDOC ---
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 Patient states she was diagnosed with otitis media by her PCP earlier today and was prescribed Bactrim. She took one pill of the Bactrim at 6 pm and at 7 pm began feeling severe pain to her entire body. No recent travel or sick contacts. PAST MEDICAL HISTORY: Denies past medical history FAMILY HISTORY: Denies SOCIAL HISTORY: Denies tobacco, alcohol, illicit drug use. SURGICAL HISTORY: Denies ALLERGIES: No known drug allergies REVIEW OF SYSTEMS General/Constitutional: Chills, generalized pain. HEENT: Denies change in vision. Denies ear pain or discharge. Denies sore throat. Cardiovascular: Denies chest pain or shortness of breath. Respiratory: Denies cough, wheezing, or hemoptysis. Gastrointestinal: Denies nausea, vomiting, diarrhea or constipation. Denies rectal bleeding. Genitourinary: Denies dysuria, frequency, or change in urination. Musculoskeletal: Denies joint or muscle swelling or pain. Denies neck or back pain. Skin and breasts: Denies rash or easy bruising. Neurologic: Denies headache, vertigo, loss of consciousness, or loss of sensation. PHYSICAL EXAM General Appearance: Uncomfortable but non-toxic appearing, writhing in pain. HEENT: Mucus membranes intact. EOMI, PERRLA, normal ENT inspection, normal voice, TMs normal, pharynx normal. No conjunctival pallor. No photophobia, scleral icterus. Neck: Supple. Trachea midline. No tenderness, rigidity, carotid bruit, stridor , lymphadenopathy, or thyromegaly. Respiratory/Chest: Lungs CTAB. No shortness of breath, chest tenderness, respiratory distress, accessory muscle use. No crackles, rales, rhonchi, stridor , wheezing, dullness Cardiovascular: Tachycardia. RRR. S1, S2. Gastrointestinal/Abdominal: Normal bowel sounds. Abdomen soft, non-distended. No tenderness or rebound tenderness. No organomegaly, pulsatile mass, guarding , hernia, hepatomegaly, splenomegaly. Musculoskeletal/Extremities: Generalized pain and tenderness to entire body. FROM of all extremities, normal capillary refill. Pelvis Stable. No CVA tenderness. No tenderness to extremities, pedal edema, swelling, erythema or deformity. Integumentary: No rash. Appropriate color, dry, warm. No cyanosis, erythema, jaundice or rash Neurologic: regulatory and compliance technician II-XII intact. Fully oriented, alert. Appropriate mood/affect. Motor strength 5/5. No appreciable EOM palsy, facial droop or sensory deficit. Past History - Past Medical History Allergies/Adverse Reactions: Allergies Allergy/AdvReac Type Severity Reaction Status Date / Time No Known Drug Allergies Allergy Verified 09/07/17 10:49 SEAFOOD Allergy Intermediate VOMITTING Uncoded 09/07/17 10:49 Home Medications: Ambulatory Orders Amlodipine Besylate [Norvasc -] 2.5 mg PO DAILY 09/07/17 Doxycycline Hyclate 100 mg PO BID 10 Days capsule 09/12/17 Amoxicillin - [Amoxicillin 500mg Capsule -] 500 mg PO BID #14 capsule 10/06/17 Epinephrine [Epipen] 0.3 mg IJ ASDIR PRN #1 auto.injct 10/06/17 Anemia: No Asthma: No Cancer: No Cardiac Disorders: No CVA: No COPD: No CHF: No DVT: No Dementia: No Diabetes: No GI Disorders: Yes (Ulcers, HEALED) Disorders: No HTN: Yes Hypercholesterolemia: No Liver Disease: Yes (Hepatitis) Seizures: No Thyroid Disease: No Other medical history: MRSA - Surgical History Abdominal Surgery: Yes (TUMMY TUCK) Appendectomy: No Cardiac Surgery: No Cholecystectomy: Yes Lung Surgery: No Neurologic Surgery: No Orthopedic Surgery: No - Immunization History Immunization Up to Date: Yes - Suicide/Smoking/Psychosocial Hx Smoking Status: No Smoking History: Never smoked Have you smoked in the past 12 months: No Number of Cigarettes Smoked Daily: 0 Hx Alcohol Use: No Drug/Substance Use Hx: No Substance Use Type: None Hx Substance Use Treatment: No *Physical Exam - Vital Signs Last Vital Signs Temp Pulse Resp BP Pulse Ox 99.2 F 112 H 20 129/74 100 10/06/17 21:53 10/06/17 21:53 10/06/17 21:53 10/06/17 21:53 10/06/17 21:53 ED Treatment Course - LABORATORY CBC & Chemistry Diagram: 10/06/17 23:00 10/06/17 22:30 Medical Decision Making - Medical Decision Making 10/06/17 22:51 52 yo F with PMH of HTN, hepatitis, abscesses (MRSA+ in the past) presents to ED with generalized body pain and discomfort. -CBC, CMP, lactic acid -IVF, Toradol, Benadryl 10/06/17 23:51 Patient reassessed; at this time she states the pain has resolved and family reports "she's ready to go home." Upon further discussion family states that patient had the same reaction after taking Bactrim 06/18. Advised patient and family to discontinue Bactrim. Will rx amoxicillin for otitis, family and patient deny any allergy to PCNs. Advised patient to take medication as prescribed and follow up with PCP by the end of the week. Advised patient of signs and symptoms for return to ED. Patient verbalized understanding and agrees to plan. *DC/Admit/Observation/Transfer Diagnosis at time of Disposition: Drug reaction Qualifiers: Encounter type: initial encounter Qualified Code(s): T88.7XXA - Unspecified adverse effect of drug or medicament, initial encounter - Discharge Dispostion Disposition: HOME Condition at time of disposition: Stable Admit: No - Prescriptions Prescriptions: Amoxicillin - [Amoxicillin 500mg Capsule -] 500 mg PO BID #14 capsule Epinephrine [Epipen] 0.3 mg IJ ASDIR PRN #1 auto.injct PRN Reason: severe allergic reaction - Referrals Referrals: Nimco Story [Primary Care Provider] - - Patient Instructions Printed Discharge Instructions: DI for Adverse Drug Reaction -- Allergic Additional Instructions: Please take medication as prescribed. STOP taking the Bactrim that was prescribed by Dr. Story. If you develop ANY rash, difficulty breathing, swelling of the tongue, mouth, lips, throat, or neck, or your pain returns, or you develop ANY new or worsening symptoms, please return to the ER immediately. Por favor tome la medicacin segn lo prescrito. PARE de sae el Bactrim que fue prescrito por el Dr. Story. Si desarrolla CUALQUIER erupcin, dificultad para respirar, hinchazn de la lengua, boca, labios, garganta o claudia, o si adams dolor regresa, o si desarrolla CUALQUIER sntoma nuevo o que empeora, regrese a la cary de emergencia inmediatamente. Print Language: JAPANESE - Post Discharge Activity
[2017-10-06] MEDS ORDERED: clonazePAM 0.5 MG TABLET ONE (23:03)
--- NOTE | 2017-10-06 23:09 | PDOC ---
*Physical Exam - Vital Signs Last Vital Signs Temp Pulse Resp BP Pulse Ox 99.2 F 112 H 20 129/74 100 10/06/17 21:53 10/06/17 21:53 10/06/17 21:53 10/06/17 21:53 10/06/17 21:53 ED Treatment Course - LABORATORY CBC & Chemistry Diagram: 10/06/17 23:00 10/06/17 22:30 - Medications Given in the ED: ED Medications Discontinued Medications Generic Name Dose Route Start Last Admin Trade Name Freq PRN Reason Stop Dose Admin Diphenhydramine HCl 25 mg 10/06/17 21:58 10/06/17 22:48 Benadryl Injection - IVPUSH 10/06/17 21:59 25 mg ONCE ONE Administration Ketorolac Tromethamine 30 mg 10/06/17 21:58 10/06/17 22:48 Toradol Injection - IVPUSH 10/06/17 21:59 30 mg ONCE ONE Administration Sodium Chloride 1,000 ml 10/06/17 21:58 10/06/17 22:48 Normal Saline - IV 10/06/17 21:59 1,000 ml ONCE ONE Administration Medical Decision Making - Medical Decision Making 10/06/17 23:09 agree with care from BRIDGETTE Escudero *DC/Admit/Observation/Transfer Diagnosis at time of Disposition: Drug reaction - Discharge Dispostion Disposition: HOME Condition at time of disposition: Stable - Prescriptions Prescriptions: Amoxicillin - [Amoxicillin 500mg Capsule -] 500 mg PO BID #14 capsule Epinephrine [Epipen] 0.3 mg IJ ASDIR PRN #1 auto.injct PRN Reason: severe allergic reaction - Referrals Referrals: Nimco Story [Primary Care Provider] - - Patient Instructions Printed Discharge Instructions: DI for Adverse Drug Reaction -- Allergic Additional Instructions: Please take medication as prescribed. STOP taking the Bactrim that was prescribed by Dr. Story. If you develop ANY rash, difficulty breathing, swelling of the tongue, mouth, lips, throat, or neck, or your pain returns, or you develop ANY new or worsening symptoms, please return to the ER immediately. Por favor tome la medicacin segn lo prescrito. PARE de sae el Bactrim que fue prescrito por el Dr. Story. Si desarrolla CUALQUIER erupcin, dificultad para respirar, hinchazn de la lengua, boca, labios, garganta o claudia, o si adams dolor regresa, o si desarrolla CUALQUIER sntoma nuevo o que empeora, regrese a la cary de emergencia inmediatamente. Print Language: [place] CITIZEN - Post Discharge Activity
[2017-10-06 23:20] LABS: ALBUMIN 3.8 g/dl (3.4-5.0); ALK PHOS 95 U/L (45-117); ANION GAP 11 (8-16); BILIRUBIN,TOTAL 0.3 mg/dL (0.2-1.0); CALCIUM 9.1 mg/dL (8.5-10.1); CO2 25 mmol/L (21-32); CREATININE 0.7 mg/dL (0.55-1.02); GLUCOSE,RANDOM 118 mg/dL (74-106); SGOT/AST 19 U/L (15-37); SGPT/ALT 32 U/L (12-78); TOT PROT 8.2 g/dl (6.4-8.2)
[2017-10-06 23:24] LABS: BASOPHIL 0.4 % (0-2.0); EOSINOPHIL 0.5 % (0-4.5); MCH 26.4 pg (25.7-33.7); MCHC 31.7 g/dl (32.0-36.0); MEAN CELL VOLUME 83.1 fl (80-96); MEAN PLT VOLUME 9.1 fl (7.5-11.1); NEUTROPHILS 87.1 % (42.8-82.8); PLATELET COUNT 370 K/MM3 (134-434); RDW 16.3 % (11.6-15.6); WHITE BLOOD COUNT 15.8 K/mm3 (4.0-10.0)
[2017-10-07 00:24] VITALS: BP 116/77; PULSE 78; TEMP 98.6
== END 2017-10-07 00:24 | disposition home or self-care (01) ==
LOC: JER 21:41
PROC: 3E0337Z Introduction of Electrolytic and Water Balance Substance into Peripheral Vein, Percutaneous Approach (ICD-10-PCS; principal; 2017-10-06)
PROC: 3E033GC Introduction of Other Therapeutic Substance into Peripheral Vein, Percutaneous Approach (ICD-10-PCS; 2017-10-06)
PROC: 3E0333Z Introduction of Anti-inflammatory into Peripheral Vein, Percutaneous Approach (ICD-10-PCS; 2017-10-06)
DX: T88.7XXA Unspecified adverse effect of drug or medicament, initial encounter (principal); X58.XXXA Exposure to other specified factors, initial encounter; Y93.89 Activity, other specified; Y92.9 Unspecified place or not applicable; I10 Essential (primary) hypertension; K75.9 Inflammatory liver disease, unspecified
CPT/HCPCS: 36415; 80053; 83605; 85025; 87040; 99282-25

== ENCOUNTER 2018-04-23 21:15 | Emergency (ER) | payer SELFPAY ==
--- NOTE | 2018-04-23 21:41 | PDOC ---
Rapid Medical Evaluation Chief Complaint: Injury Time Seen by Provider: 04/23/18 21:34 Medical Evaluation: Allergies Allergy/AdvReac Type Severity Reaction Status Date / Time No Known Drug Allergies Allergy Verified 09/07/17 10:49 SEAFOOD Allergy Intermediate VOMITTING Uncoded 09/07/17 10:49 04/23/18 21:35 I have performed a brief in-person evaluation of this patient. The patient presents with a chief complaint of: swelling abd pain, diarrhea x1 week. Seen by a physician x1 week ago. Blood work /sonogram. Was all normal. Neg fever/chills Pertinent physical exam findings: L/S CTAB, RRR, S1S2, global abd pain I have ordered the following: cbc/cmp/lipase/ua The patient will proceed to the ED for further evaluation Discharge Disposition - Referrals Referrals: Carola Jon MD [Primary Care Provider] - - Patient Instructions - Post Discharge Activity
[2018-04-23 21:42] VITALS: BP 142/98; PULSE 80; TEMP 98.2; BMI 26.5
[2018-04-23 21:54] LABS: BASO % 0.3 % (0-2.0); EOS % 0.8 % (0-4.5); HEMATOCRIT 34.7 % (32.4-45.2); HEMOGLOBIN 11.4 GM/dL (10.7-15.3); LYMPH % 8.4 % (8-40); MCH 27.3 pg (25.7-33.7); MCHC 32.8 g/dl (32.0-36.0); MEAN CELL VOLUME 83.2 fl (80-96); MEAN PLT VOLUME 8.3 fl (7.5-11.1); NEUT % 84.5 % (42.8-82.8); PLATELET COUNT 483 K/MM3 (134-434); RBC 4.16 M/mm3 (3.60-5.2); RDW 14.9 % (11.6-15.6); WHITE BLOOD COUNT 14.1 K/mm3 (4.0-10.0)
[2018-04-23 22:21] LABS: URINE APPEARANCE CLEAR; URINE BILIRUBIN NEGATIVE (<2.0 mg/dL); URINE COLOR STRAW; URINE GLUCOSE (UA) NEGATIVE (NEGATIVE); URINE KETONE NEGATIVE (NEGATIVE); URINE LEUK ESTERASE NEGATIVE (NEGATIVE); URINE NITRITE NEGATIVE (NEGATIVE); URINE PROTEIN NEGATIVE (NEGATIVE); URINE UROBILINOGEN NEGATIVE mg/dL (0.2-1.0)
[2018-04-23 22:27] LABS: ALBUMIN 3.5 g/dl (3.4-5.0); ANION GAP 8 (8-16); BILIRUBIN,TOTAL 0.3 mg/dL (0.2-1.0); BLOOD UREA NITROGEN 13 mg/dL (7-18); CALCIUM 8.5 mg/dL (8.5-10.1); CHLORIDE 108 mmol/L (98-107); CO2 24 mmol/L (21-32); GLUCOSE,RANDOM 98 mg/dL (74-106); LIPASE 141 U/L (73-393); POTASSIUM 3.9 mmol/L (3.5-5.1); SGOT/AST 9 U/L (15-37); SGPT/ALT 23 U/L (12-78); SODIUM 140 mmol/L (136-145); TOT PROT 7.6 g/dl (6.4-8.2)
[2018-04-23 22:28] LABS: ALK PHOS 86 U/L (45-117)
[2018-04-24] MEDS ORDERED: RANITIDINE HCL 150 MG TABLET (FP) PO ONE (00:13)
[2018-04-24] MEDS ORDERED: ONDANSETRON *ODT* 4 MG TABLET SL ONE (00:13)
[2018-04-24] MEDS ORDERED: ONDANSETRON *ODT* 4 MG TABLET ONE (00:47)
[2018-04-24] MEDS ORDERED: RANITIDINE HCL 150 MG TABLET (FP) ONE (00:47)
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
--- NOTE | 2018-04-24 01:11 | PDOC ---
Attending Attestation - Resident Resident Name: MendezDavid - ED Attending Attestation I have performed the following: I have examined & evaluated the patient, The case was reviewed & discussed with the resident, I agree w/resident's findings & plan, Exceptions are as noted - HPI HPI: 04/24/18 01:07 52yoF presents w/ epigastric pain and loose stools x 1 week. No fevers, no bleeding, no travel. PMhx as per resident note - Physicial Exam PE: 04/24/18 01:09 NAD,well appearing soft, mild ttp epigstric, no guarding , no rebound, no Burdick's labs per traige reviewed and unremarkable. - Medical Decision Making 04/24/18 01:09 52yoF w/ likely AGE. - labs reviewed and unremarkalbe - Pt is tolerating PO after meds - DC. <Dennise Mcguire - Last Filed: 04/24/18 01:07> - HPI HPI: 04/24/18 06:48 Patient is a 52 year old female with a significant past medical history of HTN, hepatitis, abscesses (MRSA+ in the past), who presents to the ED with complaints of upper abdominal pain. Patient reports experiencing epigastric pain that began x1 week ago as well as associated diarrhea with nausea. He reports coming into the ED for further evaluations after symptoms did not show any signs of subsiding. Denies chest pain, Sob. Denies nausea, vomiting. Denies contact with sick individuals, out of state travelling. Denies fevers, chills. Denies any other symptoms. Allergies: Seafood. Social history: No smoking. No alcohol. No illicit drugs. Surgical history: cholecystectomy, and abdominoplasty PMD: Dr. Jon <Damion Szymanski - Last Filed: 04/24/18 06:48>
== END 2018-04-24 01:28 | disposition home or self-care (01) ==
LOC: JER 21:15
DX: K29.70 Gastritis, unspecified, without bleeding (principal); I10 Essential (primary) hypertension; K75.9 Inflammatory liver disease, unspecified; Z86.14 Personal history of Methicillin resistant Staphylococcus aureus infection; Z90.49 Acquired absence of other specified parts of digestive tract
CPT/HCPCS: 36415; 80053; 81003; 83690; 85025; 99281-25; 99283-25; Q0162